=== PATIENT | male | born 1985 | race African-American/Black ===

== ENCOUNTER 2017-09-11 12:48 | Emergency (ER) | payer SELFPAY ==
[2017-09-11 13:26] VITALS: BP 146/94; PULSE 92; RESP 16; TEMP 98.8; O2SAT 97
[2017-09-11] MEDS ORDERED: BREX1TAB3 PO (16:29)
--- NOTE | 2017-09-11 17:14 | PD ---
HPI Chief Complaint: Medical Clearance Time Seen by Provider: 17:01 Travel History International Travel<30 days: No Contact w/Intl Traveler<30days: No Traveled to known affect area: No History of Present Illness HPI The patient is a 32-year-old -Mosoth[place] male who presents to the emergency department for "not feeling well ". The patient states he has not been feeling well for the last 2 weeks. He does note a history of IV drug abuse , has been using IV methamphetamines. The patient was living in [place] until 2 months ago when he relocated to [place], [place]. He now states he was kicked out of a house where he was staying and does not have a home. The patient states he was going to go to [facility] to be evaluated for possible drug rehabilitation/detoxification, however, came to [facility] for clearance. He does complain of a lump on the anterior aspect of the right forearm, possibly secondary to missing from IV drug use. He also notes a history of hepatitis C. He denies any fever. He simply feels "hot", and not "feeling well". He denies any chest pain, shortness breath, nausea, vomiting, diarrhea, or abdominal pain. Symptoms are moderate. PFSH Past Medical History Autoimmune Disease: Yes (POSSIBLE HIV ) Anxiety: Yes Diminished Hearing: Yes Hepatitis: Yes (C) Psychiatric: Yes Schizophrenia: Yes Tetanus Vaccination: Never Vaccinated Influenza Vaccination: No Past Surgical History Surgical History: No Previous Surgery Social History Alcohol Use: Yes Tobacco Use: Yes Substance Use: Yes (meth , heroin ) Allergies-Medications (Allergen,Severity, Reaction): Coded Allergies: cephalexin (Verified Allergy, Unknown, HIVES , 09/11/17) Reported Meds & Prescriptions Reported Meds & Active Scripts Active Reported Rexulti (Brexpiprazole) 1 Mg Tab 1 Mg PO DAILY Review of Systems Except as stated in HPI: all other systems reviewed are Neg General / Constitutional: No: Fever HENT: No: Lightheadedness Cardiovascular: No: Chest Pain or Discomfort Respiratory: No: Shortness of Breath Gastrointestinal: No: Nausea, Vomiting, Abdominal Pain Musculoskeletal: Positive: Pain Skin: Positive Other (Multiple barba on the forearms bilateral from IV drug use and a small area of swelling on the volar aspect of the right forearm where he thinks he missed from an attempt at IV drugs) Psychiatric: Positive: Substance Abuse Physical Exam Narrative GENERAL: Awake, alert, pleasant 32-year-old male who appears his stated age and is in no acute respiratory distress. SKIN: Focused skin assessment warm/dry. Multiple track barba on the forearms bilaterally. A small area of swelling just distal to the right anterior cubital fossa approximately 2 cm in diameter, tender, but no visible track barba overlying the affected area. Slightly tender to palpation. HEAD: Atraumatic. Normocephalic. EYES: Pupils equal and round. No scleral icterus. No injection or drainage. ENT: No nasal bleeding or discharge. Mucous membranes pink and moist. NECK: Trachea midline. No JVD. CARDIOVASCULAR: Regular rate and rhythm. No murmur appreciated. RESPIRATORY: No accessory muscle use. Clear to auscultation. Breath sounds equal bilaterally. GASTROINTESTINAL: Abdomen soft, non-tender, nondistended. No rebound tenderness. MUSCULOSKELETAL: No obvious deformities. No clubbing. No cyanosis. No edema. Positive radial pulses bilaterally. NEUROLOGICAL: Awake and alert. No obvious cranial nerve deficits. Motor grossly within normal limits. Normal speech. Nonfocal. PSYCHIATRIC: Appropriate mood and affect; insight and judgment normal. Data Data Last Documented VS Vital Signs Date Time Temp Pulse Resp B/P (MAP) Pulse Ox O2 Delivery O2 Flow Rate FiO2 09/11/17 17:57 64 18 154/100 (118) 100 Room Air 09/11/17 13:26 98.8 Orders Orders Complete Blood Count With Diff (09/11/17 13:28) Basic Metabolic Panel (Bmp) (09/11/17 13:28) Blood Culture (09/11/17 17:07) Lactic Acid (09/11/17 17:07) Clindamycin 600 Mg/Ns Premix (Cleocin 60 (09/11/17 17:15) Sodium Chlor 0.9% 1000 Ml Inj (Ns 1000 M (09/11/17 17:15) Ketorolac Inj (Toradol Inj) (09/11/17 17:15) Hepatic Functional Panel (09/11/17 17:07) Labs Laboratory Tests Test 09/11/17 16:30 09/11/17 17:31 White Blood Count 9.3 TH/MM3 Red Blood Count 5.20 MIL/MM3 Hemoglobin 15.3 GM/DL Hematocrit 45.9 % Mean Corpuscular Volume 88.2 FL Mean Corpuscular Hemoglobin 29.4 PG Mean Corpuscular Hemoglobin Concent 33.3 % Red Cell Distribution Width 13.7 % Platelet Count 464 TH/MM3 Mean Platelet Volume 8.7 FL Neutrophils (%) (Auto) 57.7 % Lymphocytes (%) (Auto) 29.1 % Monocytes (%) (Auto) 7.7 % Eosinophils (%) (Auto) 4.3 % Basophils (%) (Auto) 1.2 % Neutrophils # (Auto) 5.4 TH/MM3 Lymphocytes # (Auto) 2.7 TH/MM3 Monocytes # (Auto) 0.7 TH/MM3 Eosinophils # (Auto) 0.4 TH/MM3 Basophils # (Auto) 0.1 TH/MM3 CBC Comment DIFF FINAL Differential Comment Blood Urea Nitrogen 9 MG/DL Creatinine 1.22 MG/DL Random Glucose 89 MG/DL Calcium Level 9.1 MG/DL Sodium Level 139 MEQ/L Potassium Level 3.9 MEQ/L Chloride Level 102 MEQ/L Carbon Dioxide Level 30.6 MEQ/L Anion Gap 6 MEQ/L Estimat Glomerular Filtration Rate 83 ML/MIN Lactic Acid Level 1.7 mmol/L [place] Medical Decision Making Medical Screen Exam Complete: Yes Emergency Medical Condition: Yes Medical Record Reviewed: Yes Interpretation(s) Laboratory Tests Test 09/11/17 16:30 09/11/17 17:31 White Blood Count 9.3 TH/MM3 Red Blood Count 5.20 MIL/MM3 Hemoglobin 15.3 GM/DL Hematocrit 45.9 % Mean Corpuscular Volume 88.2 FL Mean Corpuscular Hemoglobin 29.4 PG Mean Corpuscular Hemoglobin Concent 33.3 % Red Cell Distribution Width 13.7 % Platelet Count 464 TH/MM3 Mean Platelet Volume 8.7 FL Neutrophils (%) (Auto) 57.7 % Lymphocytes (%) (Auto) 29.1 % Monocytes (%) (Auto) 7.7 % Eosinophils (%) (Auto) 4.3 % Basophils (%) (Auto) 1.2 % Neutrophils # (Auto) 5.4 TH/MM3 Lymphocytes # (Auto) 2.7 TH/MM3 Monocytes # (Auto) 0.7 TH/MM3 Eosinophils # (Auto) 0.4 TH/MM3 Basophils # (Auto) 0.1 TH/MM3 CBC Comment DIFF FINAL Differential Comment Blood Urea Nitrogen 9 MG/DL Creatinine 1.22 MG/DL Random Glucose 89 MG/DL Calcium Level 9.1 MG/DL Sodium Level 139 MEQ/L Potassium Level 3.9 MEQ/L Chloride Level 102 MEQ/L Carbon Dioxide Level 30.6 MEQ/L Anion Gap 6 MEQ/L Estimat Glomerular Filtration Rate 83 ML/MIN Lactic Acid Level 1.7 mmol/L Differential Diagnosis Differential diagnosis includes IV drug abuse, bacteremia, septicemia, cellulitis, abscess, hematoma, contusion, polysubstance abuse. Narrative Course IV was established, labs are drawn and sent, the patient was placed on cardiac telemetry monitoring and continuous pulse oximetry monitoring. CBC, BMP, LFTs, lactic acid, blood culture were sent to lab. The patient was ordered clindamycin, normal saline, and Toradol 30 mg intravenously. However, the patient demanded that the IV be removed and refused the medications. The patient's white count and lactic acid are unremarkable. The patient may have an infected injection site, refused IV antibiotics, I cannot feel an underlying abscess, will be placed on Bactrim. He is advised to stop using drugs and follow-up in [facility]. Diagnosis Primary Impression: Polysubstance abuse Additional Impressions: IV drug abuse Infected wound Patient Instructions: General Instructions Additional Instructions: Stop using drugs. Follow-up in [facility]. Take Bactrim as directed. Med/Other Pt SpecificInfo: Prescription(s) given Scripts Sulfamethoxazole-Trimethoprim (Bactrim DS) 800-160 Mg Tab 1 TAB PO BID for Infection, #14 TAB 0 Refills Prov: Cristobal Vaughan MD 09/11/17 Disposition: DISCHARGE HOME Condition: Stable Cristobal Vaughan MD September 11, 2017 17:14
[2017-09-11] MEDS ORDERED: KETOROLAC TROMETHAMINE 30 MG/ML (IVP) VIAL IV PUSH ONE (17:15)
[2017-09-11] MEDS ORDERED: CLINDAMYCIN 600 MG/NS PREMIX 50 ML IV ONE (17:15)
[2017-09-11] MEDS ORDERED: SODIUM CHLOR 0.9% 1000 ML INJ 1,000 ML IV ONE (17:15)
[2017-09-11 17:18] LABS: AUTOMATED NEUTROPHIL # 5.4 TH/MM3 (1.8-7.7); BASOPHIL # 0.1 TH/MM3 (0-0.2); BASOPHIL % 1.2 % (0.0-2.0); EOSINOPHIL # 0.4 TH/MM3 (0-0.4); EOSINOPHIL % 4.3 % (0.0-4.0); HEMATOCRIT 45.9 % (39.0-51.0); HEMOGLOBIN 15.3 GM/DL (13.0-17.0); LYMPH % 29.1 % (9.0-44.0); LYMPHOCYTE # 2.7 TH/MM3 (1.0-4.8); MEAN CELL VOLUME 88.2 FL (80.0-100.0); MEAN CORPUSCULAR HEMOGLOBIN 29.4 PG (27.0-34.0); MEAN CORPUSCULAR HGB CONC 33.3 % (32.0-36.0); MEAN PLATELET VOLUME 8.7 FL (7.0-11.0); MONO % 7.7 % (0.0-8.0); MONOCYTE # 0.7 TH/MM3 (0-0.9); NEUT % 57.7 % (16.0-70.0); PLATELET COUNT 464 TH/MM3 (150-450); RED CELL DISTRIBUTION WIDTH 13.7 % (11.6-17.2); WHITE BLOOD COUNT 9.3 TH/MM3 (4.0-11.0)
[2017-09-11 17:55] LABS: BICARBONATE 30.6 MEQ/L (21.0-32.0); CALCIUM 9.1 MG/DL (8.5-10.1); CREATININE 1.22 MG/DL (0.60-1.30)
[2017-09-11 17:57] VITALS: BP 154/100; PULSE 64; RESP 18; O2SAT 100
[2017-09-11] MEDS ORDERED: BACT800T5 PO (19:09)
[2017-09-12 06:58] LABS: TOTAL BILIRUBIN ADULT 0.5 MG/DL (0.2-1.0); TOTAL PROTEIN 9.1 GM/DL (6.4-8.2)
[2017-09-12 07:09] LABS: ALBUMIN 4.3 GM/DL (3.4-5.0); DIRECT BILIRUBIN ADULT 0.1 MG/DL (0.0-0.2); INDIRECT BILIRUBIN 0.4 MG/DL (0.0-0.8)
== END 2017-09-11 19:47 | disposition home or self-care (01) ==
LOC: NEPD 12:48
DX: F19.10 Other psychoactive substance abuse, uncomplicated (principal); B19.20 Unspecified viral hepatitis C without hepatic coma
CPT/HCPCS: 80048; 80076; 83605; 85025; 87040; 96374; 96375; 99283; J1885; J7030

== ENCOUNTER 2017-09-21 06:26 | Emergency (ER) | payer OTHER ==
[~2017-09-21] VITALS: Ht 167.6 cm; Wt 60.0 kg
[~2017-09-21 06:26] MED LIST: BACT800T5 PO; BREX1TAB3 PO
[2017-09-21 06:39] VITALS: BP 138/86; PULSE 107; RESP 16; TEMP 98.6; O2SAT 100
[2017-09-21 07:07] LABS: AUTOMATED NEUTROPHIL # 5.5 TH/MM3 (1.8-7.7); BASOPHIL # 0.1 TH/MM3 (0-0.2); BASOPHIL % 0.6 % (0.0-2.0); EOSINOPHIL # 0.1 TH/MM3 (0-0.4); EOSINOPHIL % 1.2 % (0.0-4.0); HEMATOCRIT 40.2 % (39.0-51.0); HEMOGLOBIN 13.9 GM/DL (13.0-17.0); LYMPH % 27.6 % (9.0-44.0); LYMPHOCYTE # 2.7 TH/MM3 (1.0-4.8); MEAN CELL VOLUME 85.5 FL (80.0-100.0); MEAN CORPUSCULAR HEMOGLOBIN 29.5 PG (27.0-34.0); MEAN CORPUSCULAR HGB CONC 34.5 % (32.0-36.0); MEAN PLATELET VOLUME 7.6 FL (7.0-11.0); MONO % 13.2 % (0.0-8.0); MONOCYTE # 1.3 TH/MM3 (0-0.9); NEUT % 57.4 % (16.0-70.0); PLATELET COUNT 474 TH/MM3 (150-450); WHITE BLOOD COUNT 9.6 TH/MM3 (4.0-11.0)
--- NOTE | 2017-09-21 07:12 | PD ---
HPI Chief Complaint: Psychiatric Symptoms Time Seen by Provider: 06:52 Travel History International Travel<30 days: No Contact w/Intl Traveler<30days: No Traveled to known affect area: No History of Present Illness HPI 32-year-old male with a history of polysubstance abuse presents to the emergency department as a wiley act for suicidal ideations. Patient says that he went to [employer] outlets this morning to see if this stores were open but they were not. States the corporate security manager saw him and advised him that the mall was closed and that he should leave. Patient admits to suicidal ideations previously but he denies any at this point. He denies having a plan. Patient says he currently lives with a cousin but would like to move away from [facility]. He does not have a place to stay. He admits to not taking his medications for his psychiatric history but cannot tell me what they are assuredly. He believes he may be taking sertraline and Bactrim. He does not know the name of his provider but does see Mr. Paul. Says that he used crystal meth this week but denies any other drug use. PFSH Past Medical History Autoimmune Disease: Yes (POSSIBLE HIV ) Anxiety: Yes Diminished Hearing: Yes Hepatitis: Yes (C) Psychiatric: Yes Schizophrenia: Yes Tetanus Vaccination: Unknown Influenza Vaccination: No Past Surgical History Surgical History: No Previous Surgery Social History Alcohol Use: Yes Tobacco Use: Yes Substance Use: Yes (meth , heroin ) Allergies-Medications (Allergen,Severity, Reaction): Coded Allergies: cephalexin (Verified Allergy, Unknown, HIVES , 09/21/17) Reported Meds & Prescriptions Reported Meds & Active Scripts Active Bactrim DS (Sulfamethoxazole-Trimethoprim) 800-160 Mg Tab 1 Tab PO BID Reported Effexor (Venlafaxine HCl) 50 Mg Tab 50 Mg PO Q12H Rexulti (Brexpiprazole) 1 Mg Tab 1 Mg PO DAILY Review of Systems Except as stated in HPI: all other systems reviewed are Neg Physical Exam Narrative GENERAL: WD, WN in NAD SKIN: Focused skin assessment warm/dry. HEAD: Atraumatic. Normocephalic. EYES: Pupils equal and round, measuring 3-4mm, reactive. No scleral icterus. No injection or drainage. ENT: No nasal bleeding or discharge. Mucous membranes pink and moist. NECK: Trachea midline. No JVD. CARDIOVASCULAR: Regular rate and rhythm. No murmur appreciated. RESPIRATORY: No accessory muscle use. Clear to auscultation. Breath sounds equal bilaterally. GASTROINTESTINAL: Abdomen soft, non-tender, nondistended. Hepatic and splenic margins not palpable. MUSCULOSKELETAL: No obvious deformities. No clubbing. No cyanosis. No edema. NEUROLOGICAL: Awake and alert. No obvious cranial nerve deficits. Motor grossly within normal limits. Normal speech. PSYCHIATRIC: Appropriate mood and affect; patient asks if anybody else is listening to our conversation, looks around frequently as if somebody is talking to him or his paranoid Data Data Last Documented VS Vital Signs Date Time Temp Pulse Resp B/P (MAP) Pulse Ox O2 Delivery O2 Flow Rate FiO2 09/21/17 14:15 09/21/17 06:39 98.6 107 16 100 Room Air Orders Orders Complete Blood Count With Diff (09/21/17 06:38) Comprehensive Metabolic Panel (09/21/17 06:38) Psych Screen (09/21/17 06:38) Drug Screen, Random Urine (09/21/17 06:38) Alcohol (Ethanol) (09/21/17 06:38) Salicylates (Aspirin) (09/21/17 06:38) Tylenol (Acetaminophen) (09/21/17 06:38) Diet Regular Basic (09/21/17 Breakfast) Diet Regular Basic (09/21/17 Lunch) Diet Regular Basic (09/21/17 Dinner) Labs Laboratory Tests Test 09/21/17 06:35 09/21/17 06:45 White Blood Count 9.6 TH/MM3 Red Blood Count 4.70 MIL/MM3 Hemoglobin 13.9 GM/DL Hematocrit 40.2 % Mean Corpuscular Volume 85.5 FL Mean Corpuscular Hemoglobin 29.5 PG Mean Corpuscular Hemoglobin Concent 34.5 % Red Cell Distribution Width 14.0 % Platelet Count 474 TH/MM3 Mean Platelet Volume 7.6 FL Neutrophils (%) (Auto) 57.4 % Lymphocytes (%) (Auto) 27.6 % Monocytes (%) (Auto) 13.2 % Eosinophils (%) (Auto) 1.2 % Basophils (%) (Auto) 0.6 % Neutrophils # (Auto) 5.5 TH/MM3 Lymphocytes # (Auto) 2.7 TH/MM3 Monocytes # (Auto) 1.3 TH/MM3 Eosinophils # (Auto) 0.1 TH/MM3 Basophils # (Auto) 0.1 TH/MM3 CBC Comment DIFF FINAL Differential Comment Blood Urea Nitrogen 9 MG/DL Creatinine 1.22 MG/DL Random Glucose 97 MG/DL Total Protein 8.8 GM/DL Albumin 4.2 GM/DL Calcium Level 9.1 MG/DL Alkaline Phosphatase 81 U/L Aspartate Amino Transf (AST/SGOT) 78 U/L Alanine Aminotransferase (ALT/SGPT) 46 U/L Total Bilirubin 0.6 MG/DL Sodium Level 136 MEQ/L Potassium Level 4.1 MEQ/L Chloride Level 99 MEQ/L Carbon Dioxide Level 28.8 MEQ/L Anion Gap 8 MEQ/L Estimat Glomerular Filtration Rate 83 ML/MIN Salicylates Level 2.1 MG/DL Acetaminophen Level LESS THAN 2.0 MCG/ML Ethyl Alcohol Level LESS THAN 3 MG/DL Urine Opiates Screen NEG Urine Barbiturates Screen NEG Urine Amphetamines Screen POS Urine Benzodiazepines Screen NEG Urine Cocaine Screen NEG Urine Cannabinoids Screen NEG MDM Medical Decision Making Medical Screen Exam Complete: Yes Emergency Medical Condition: Yes Differential Diagnosis Substance use, polysubstance use, substance disorder, alcohol intoxication Narrative Course 32-year-old male with a history of polysubstance abuse presents to the emergency department as a wiley act for suicidal ideations. Patient says that he went to [employer] this morning to see if this stores were open but they were not. States the corporate security manager saw him and advised him that the mall was closed and that he should leave. Patient admits to suicidal ideations previously but he denies any at this point. He denies having a plan. Patient says he currently lives with a cousin but would like to move away from [facility] [place] [facility]. He does not have a place to stay. He admits to not taking his medications for his psychiatric history but cannot tell me what they are assuredly. He believes he may be taking sertraline and Bactrim. He does not know the name of his provider but does see Mr. Paul. Says that he used crystal meth this week but denies any other drug use. Vital signs are stable. His labs are stable. During the ER visit, patient repeatedly left his room and was found wandering within the pod. He was easily talked into going back into his room but this was somewhat disruptive. Patient is medically cleared to see psych. Site has cleared this patient to be treated as an outpatient. He denies suicidal homicidal ideations at this time. Condition: Stable Edward,Christi RENTERIA September 21, 2017 07:12
[2017-09-21 07:28] LABS: ALBUMIN 4.2 GM/DL (3.4-5.0); ALKALINE PHOSPHATASE 81 U/L (45-117); ALT (GPT) 46 U/L (12-78); AST (GOT) 78 U/L (15-37); BICARBONATE 28.8 MEQ/L (21.0-32.0); BLOOD UREA NITROGEN 9 MG/DL (7-18); CALCIUM 9.1 MG/DL (8.5-10.1); CHLORIDE 99 MEQ/L (98-107); CREATININE 1.22 MG/DL (0.60-1.30); GLOMERULAR FILTRATION RATE 83 ML/MIN (>89); GLUCOSE,RANDOM 97 MG/DL (74-106); SODIUM (NA) 136 MEQ/L (136-145); TOTAL BILIRUBIN ADULT 0.6 MG/DL (0.2-1.0); TOTAL PROTEIN 8.8 GM/DL (6.4-8.2)
[2017-09-21 07:31] LABS: ACETAMINOPHEN LESS THAN 2.0 MCG/ML (10.0-30.0)
[2017-09-21] MEDS ORDERED: VENL50TA PO (13:42)
--- NOTE | 2017-09-21 15:35 | PD ---
History of Present Illness Chief Complaint: Psychiatric Symptoms Time Seen by Provider: 15:10 Travel History International Travel<30 Days: No Contact w/Intl Traveler<30days: No Known affected area: No Legal Status Legal Status: Heath Act Heath Act Signed By: Sindi Cid Heath Act Comment: officer Clair MANI [id number] History of Present Illness: History of Present Illness HPI 32-year-old, single, -[place]er male with a history of polysubstance abuse , mostly methamphetamine abuse who presents to the emergency department as a heath act initiated by law enforcement. The Heath act alleges that the patient reported to the police that he has not taken his medication and is overwhelmed and anxious he also advised him he has thoughts of harming himself when off his medication. He was found wandering through a construction site and approach patrol vehicle looking for help. The patient reports that he was at the mall waiting for the bus. He states that he probably told the police lieutenant precinct "I mentally hurt myself". He denies that he expressed any true suicidal ideation at that time. EMR is reviewed. There is one previous contact with [facility] on September 11 and this was related to his substance use disorder. Current toxicology is positive for amphetamines. The patient has been monitored in J pod. He has been somewhat demanding of staff. He has been able to accept redirection. On evaluation the patient is alert, and oriented. He is somewhat anxious. He tells me that he has been thinking about going to [facility] for detox. Reports 8 month history of methamphetamine abuse. He also tells me that he was seen at [facility] outpatient on September 16 and has been given a prescription for Zoloft for treatment of his anxiety. The patient does not present any psychosis or any denis. He denies any hallucinations. He denies any suicidal or homicidal ideation, intent or plan. He is requesting to be discharged and is planning on going up to [place] to enter a rehab program. He tells me that he has been in communication with his aunt who lives in [place] and will help him get into such rehab. [facility] Past Medical History Autoimmune Disease: Yes (POSSIBLE HIV ) Anxiety: Yes Diminished Hearing: Yes Hepatitis: Yes (C) Psychiatric: Yes Schizophrenia: Yes Tetanus Vaccination: Unknown Influenza Vaccination: No Past Surgical History Surgical History: No Previous Surgery Psychiatric History Psychiatric History Hx Psychiatric Treatment: [facility] outpatient. Has been to [facility] twice in the past. No previous history of suicide attempt. No history of self-injurious behavior History of Inpatient Treatment: Yes Guns or firearms in home: No Social History Single male. Has completed a 4 year college degree in history. He is currently unemployed and has worked for a [employer]. He is currently living in [facility] with a cousin. When asked why he has not worked in his chosen field of study he tells me that it is due to his drug use. Hx Alcohol Use: Yes Hx Tobacco Use: Yes Hx Substance Use: Yes Substance Use Type: Alcohol, Amphetamines-Stimulants Other Substances Used: ALCHOL 12 YEARS /// METH 9 MONTHS Hx of Substance Use Treatment: Yes (Has been a resident of [facility] [place] until June of this year.) Family Psychiatric History Mother with history of schizophrenia and bipolar disorder Allergies-Medications (Allergen,Severity, Reaction): Coded Allergies: cephalexin (Verified Allergy, Unknown, HIVES , 09/21/17) Reported Meds & Prescriptions Reported Meds & Active Scripts Active Bactrim DS (Sulfamethoxazole-Trimethoprim) 800-160 Mg Tab 1 Tab PO BID Reported Effexor (Venlafaxine HCl) 50 Mg Tab 50 Mg PO Q12H Rexulti (Brexpiprazole) 1 Mg Tab 1 Mg PO DAILY Review of Systems Psychiatric: COMPLAINS OF: Anxiety Except as stated in HPI: all other systems reviewed are Neg Mental Status Examination Appearance: Appropriate Consciousness: Alert Orientation: x4 Motor Activity: Normal gait Speech: Unremarkable Language: Adequate Fund of Knowledge: Adequate Attention and Concentration: Adequate Memory: Unremarkable Mood: Appropriate, Anxious Affect: Appropriate Thought Process & Associations: Intact, Logical, Goal directed Thought Content: Appropriate, Thought blocking Hallucination Type: None Delusion Type: None Suicidal Ideation: No Suicidal Plan: No Suicidal Intention: No Homicidal Ideation: No Homicidal Plan: No Homicidal Intention: No Insight: Poor Judgment: Adequate MDM Medical Decision Making Medical Record Reviewed: Yes Assessment/Plan History of Present Illness HPI 32-year-old male with history of amphetamine use disorder, anxiety disorder who was placed under Heath act by law enforcement after he was found at a local [employer]. The mall was not open at that time. The Heath act alleges that the patient verbalize suicidal ideation. The patient denies any suicidal or homicidal ideation, intent or plan. He presents no evidence of any psychosis, no denis, no hypomania. He has been in behavioral control while here in [facility]. Has presented no evidence of unstable mental illness as defined under the Heath act. Patient acknowledges use of methamphetamines. He also tells me that he has been in contact with his family in [place] and plans to go to [place] to be admitted to a rehab facility there. At this time the patient presents no criteria to remain under the Heath act and therefore it will be lifted. He is provided psychoeducation. Patient is psychiatric clear for discharge from the ED. Orders Orders Complete Blood Count With Diff (09/21/17 06:38) Comprehensive Metabolic Panel (09/21/17 06:38) Psych Screen (09/21/17 06:38) Drug Screen, Random Urine (09/21/17 06:38) Alcohol (Ethanol) (09/21/17 06:38) Salicylates (Aspirin) (09/21/17 06:38) Tylenol (Acetaminophen) (09/21/17 06:38) Diet Regular Basic (09/21/17 Breakfast) Diet Regular Basic (09/21/17 Lunch) Diet Regular Basic (09/21/17 Dinner) Results Vital Signs Date Time Temp Pulse Resp B/P (MAP) Pulse Ox O2 Delivery O2 Flow Rate FiO2 09/21/17 14:15 09/21/17 06:39 98.6 107 16 138/86 (103) 100 Room Air Laboratory Tests Test 09/21/17 06:35 09/21/17 06:45 White Blood Count 9.6 Red Blood Count 4.70 Hemoglobin 13.9 Hematocrit 40.2 Mean Corpuscular Volume 85.5 Mean Corpuscular Hemoglobin 29.5 Mean Corpuscular Hemoglobin Concent 34.5 Red Cell Distribution Width 14.0 Platelet Count 474 Mean Platelet Volume 7.6 Neutrophils (%) (Auto) 57.4 Lymphocytes (%) (Auto) 27.6 Monocytes (%) (Auto) 13.2 Eosinophils (%) (Auto) 1.2 Basophils (%) (Auto) 0.6 Neutrophils # (Auto) 5.5 Lymphocytes # (Auto) 2.7 Monocytes # (Auto) 1.3 Eosinophils # (Auto) 0.1 Basophils # (Auto) 0.1 CBC Comment DIFF FINAL Differential Comment Blood Urea Nitrogen 9 Creatinine 1.22 Random Glucose 97 Total Protein 8.8 Albumin 4.2 Calcium Level 9.1 Alkaline Phosphatase 81 Aspartate Amino Transf (AST/SGOT) 78 Alanine Aminotransferase (ALT/SGPT) 46 Total Bilirubin 0.6 Sodium Level 136 Potassium Level 4.1 Chloride Level 99 Carbon Dioxide Level 28.8 Anion Gap 8 Estimat Glomerular Filtration Rate 83 Salicylates Level 2.1 Acetaminophen Level LESS THAN 2.0 Ethyl Alcohol Level LESS THAN 3 Urine Opiates Screen NEG Urine Barbiturates Screen NEG Urine Amphetamines Screen POS Urine Benzodiazepines Screen NEG Urine Cocaine Screen NEG Urine Cannabinoids Screen NEG Diagnosis Primary Impression: Methamphetamine abuse Psychiatrically Cleared: Yes Departure Forms: Tests/Procedures Patient Instructions: General Instructions Med/ Other Pt Specific Info: No Change to Meds Disposition: 01 DISCHARGE HOME Condition: Stable Tanvi Miller [facility] September 21, 2017 15:35
== END 2017-09-21 16:00 | disposition home or self-care (01) ==
LOC: NEPD 06:26 → NEPJ 16:00
DX: F15.10 Other stimulant abuse, uncomplicated (principal); F41.9 Anxiety disorder, unspecified; F20.9 Schizophrenia, unspecified; Z72.0 Tobacco use; Z79.899 Other long term (current) drug therapy
CPT/HCPCS: 80053; 80307; 85025; 99284